=== PATIENT | female | born 1945 | race Caucasian/White ===

== ENCOUNTER 2024-01-20 19:16 | Inpatient (IN) | payer MEDICARE, MEDICAID ==
[~2024-01-20] VITALS: Ht 154.9 cm; Wt 78.5 kg
[~2024-01-20 19:16] MED LIST: ATEN-42 PO; HUM100IN SQ; PRAV40TA58 PO
[2024-01-20 20:00] VITALS: BP 105/54; PULSE 70; RESP 18; TEMP 36.3918; O2SAT 99
[2024-01-20 20:02] VITALS: BP 105/54; PULSE 70; RESP 18; TEMP 36.3624
[2024-01-20] MEDS ORDERED: IPRATROPIUM/ALBUTEROL 0.5-3(2.5)MG/3ML NEB HHN PRN (20:45)
[2024-01-20] MEDS ORDERED: DOCUSATE SODIUM 100MG CAPSULE PO PRN (20:45)
[2024-01-20] MEDS ORDERED: GUAIFENESIN 200MG/10ML SUGAR FREE UDC PO PRN (20:45)
[2024-01-20] MEDS ORDERED: ONDANSETRON HCL 4MG/2ML INJ IV PRN (20:45)
[2024-01-20] MEDS ORDERED: MAGNESIUM/ALUMINUM HYDROXIDE/SIMETHICONE 30ML UDC PO PRN (20:45)
[2024-01-20] MEDS ORDERED: DEXTROSE 50% WATER 50ML SYRINGE IV PRN (20:45)
[2024-01-20] MEDS: SODIUM CHLORIDE 0.9% 1,000 ML IV SCH (21:00)
[2024-01-20] MEDS: BLOOD SUGAR DIAGNOSTIC STRIP TEST SCH (21:39)
[2024-01-20] MEDS: INSULIN LISPRO 100 UNITS/ML SUBCUT SCH (21:40)
[2024-01-20] MEDS: INSULIN GLARGINE 100 UNITS/ML SUBCUT SCH (21:41)
[2024-01-20] MEDS: MEROPENEM 1G/100ML 100 ML IV SCH (23:09)
[2024-01-21 06:29] LABS: CHLORIDE 109 mEq/L (98-107); POTASSIUM 4.6 mEq/L (3.5-5.1); SODIUM 138 mEq/L (136-145)
[2024-01-21 06:32] LABS: CARBON DIOXIDE 24 mEq/L (21-32)
[2024-01-21 06:33] LABS: CALCIUM 8.3 mg/dL (8.7-10.4)
[2024-01-21 06:37] LABS: CREATININE 0.7 mg/dL (0.6-1.0); GLUCOSE 90 mg/dL (70-105)
[2024-01-21 06:38] LABS: UREA NITROGEN BLOOD 13 mg/dL (9-23)
[2024-01-21 06:39] LABS: ALANINE AMINOTRANSFERASE 12 IU/L (10-49); ALBUMIN 2.7 g/dL (3.2-4.8)
[2024-01-21 06:40] LABS: ASPARTATE AMINOTRANSFERASE 30 IU/L (<34); BILIRUBIN TOTAL 0.3 mg/dL (0.1-1.0); PROTEIN TOTAL 5.3 g/dL (6.0-8.3)
[2024-01-21 06:43] LABS: PREALBUMIN < 5.0 mg/dl (10.0-40.0)
[2024-01-21 06:51] LABS: BASOPHILS % 0.1 % (0.0-2.0); EOSINOPHILS % 0.6 % (0.0-5.0); HEMATOCRIT. 38.4 % (36.0-48.0); HEMOGLOBIN. 12.6 g/dL (12.0-16.0); LYMPHOCYTES % 20.8 % (20.0-50.0); MEAN CORPUSCULAR HEMOGLOBIN 32.6 pg (28.0-32.0); MEAN CORPUSCULAR HGB CONC 32.8 g/dL (31.0-37.0); MEAN CORPUSCULAR VOLUME 99.3 fL (81.0-99.0); MEAN PLATELET VOLUME 8.1 fl (7.4-10.4); MONOCYTES % 7.5 % (2.0-8.0); PLATELET 176 x1000/uL (130-400); RED BLOOD CELL COUNT 3.87 mill/uL (4.2-5.4); RED CELL DISTRIBUTION WIDTH 15.6 % (11.6-14.6); WHITE BLOOD COUNT 9.3 x1000/uL (4.5-11.0)
[2024-01-21 08:00] VITALS: BP 139/54; PULSE 78; RESP 18; TEMP 36.50292; O2SAT 99
[2024-01-21] MEDS: ASPIRIN 81MG EC TABLET PO SCH (11:00)
[2024-01-21] MEDS: FAMOTIDINE 20MG/2ML VIAL IV SCH (11:00)
[2024-01-21] MEDS: MAGNESIUM OXIDE 400MG TABLET PO SCH (11:00)
[2024-01-21] MEDS: BISACODYL 10MG SUPP PR NR (13:00)
[2024-01-21] MEDS: POLYETHYLENE GLYCOL 3350 (17GM) 1 DOSE PACK PO SCH (13:00)
[2024-01-21 20:00] VITALS: BP 147/72; PULSE 86; RESP 20; TEMP 36.78072; O2SAT 100
[2024-01-22 06:16] LABS: BASOPHILS % 0.1 % (0.0-2.0); EOSINOPHILS % 0.7 % (0.0-5.0); HEMATOCRIT. 37.1 % (36.0-48.0); HEMOGLOBIN. 12.3 g/dL (12.0-16.0); LYMPHOCYTES % 22.5 % (20.0-50.0); MEAN CORPUSCULAR HEMOGLOBIN 32.6 pg (28.0-32.0); MEAN CORPUSCULAR HGB CONC 33.1 g/dL (31.0-37.0); MEAN CORPUSCULAR VOLUME 98.5 fL (81.0-99.0); MEAN PLATELET VOLUME 7.6 fl (7.4-10.4); MONOCYTES % 7.9 % (2.0-8.0); NEUTROPHILS % 68.8 % (40.0-76.0); PLATELET 193 x1000/uL (130-400); RED BLOOD CELL COUNT 3.77 mill/uL (4.2-5.4); RED CELL DISTRIBUTION WIDTH 16.2 % (11.6-14.6); WHITE BLOOD COUNT 7.5 x1000/uL (4.5-11.0)
[2024-01-22 06:21] LABS: CHLORIDE 107 mEq/L (98-107); POTASSIUM 4.5 mEq/L (3.5-5.1); SODIUM 136 mEq/L (136-145)
[2024-01-22 06:22] LABS: CALCIUM 8.6 mg/dL (8.7-10.4); CARBON DIOXIDE 26 mEq/L (21-32)
[2024-01-22 06:27] LABS: CREATININE 0.8 mg/dL (0.6-1.0); GLUCOSE 142 mg/dL (70-105); IRON 43 ug/dL (50-170); UREA NITROGEN BLOOD 13 mg/dL (9-23)
[2024-01-22 06:28] LABS: AMMONIA < 17 uMol/L (<32)
[2024-01-22 06:30] LABS: TOTAL IRON BINDING CAPACITY 260 ug/dl (250-425)
[2024-01-22 06:31] LABS: THYROID STIMULATING HORMONE 1.99 uIU/mL (0.55-4.78)
[2024-01-22 06:37] LABS: FERRITIN 575 ng/mL (10-291); FOLIC ACID (FOLATE) SERUM 11.06 ng/mL (>5.38)
[2024-01-22 06:38] LABS: VITAMIN B12 SERUM 590 pg/mL (211-911)
[2024-01-22 07:55] VITALS: BP 158/79; PULSE 81; RESP 20; TEMP 36.114; O2SAT 99
[2024-01-22 20:00] VITALS: BP 137/73; PULSE 86; RESP 18; TEMP 36.114; O2SAT 98
[2024-01-22 21:26] LABS: CLARITY URINE TURBID (CLEAR); COLOR URINE YELLOW (YELLOW); GLUCOSE URINE 2+ (NEGATIVE); KETONES URINE NEGATIVE (NEGATIVE); LEUKOCYTE ESTERASE URINE 3+ (NEGATIVE); NITRITE URINE NEGATIVE (NEGATIVE); OCCULT BLOOD URINE 2+ (NEGATIVE); PROTEIN URINE 1+ (NEGATIVE); UROBILINOGEN URINE 0.2 E.U./dL (0.2-1.0)
[2024-01-22 21:52] LABS: BACTERIA URINE 1+; SQUAMOUS EPITHELIAL CELL URINE FEW /lpf (RARE/1+); WBC URINE TNTC /hpf (0-2)
[2024-01-23 08:00] VITALS: BP 150/79; PULSE 85; RESP 20; TEMP 36.50292; O2SAT 99
[2024-01-23] MEDS: ACETAMINOPHEN 325MG TABLET PO PRN (08:56)
[2024-01-23] MEDS: MECLIZINE 25MG TABLET PO SCH (13:21)
[2024-01-23] MEDS: LINAGLIPTIN 5MG TABLET PO SCH (15:40)
[2024-01-23 20:00] VITALS: BP 121/56; PULSE 85; RESP 20; TEMP 36.44736; O2SAT 99
[2024-01-24 08:00] VITALS: BP 114/77; PULSE 95; RESP 19; TEMP 36.83628; O2SAT 98
[2024-01-24 20:00] VITALS: BP 117/64; PULSE 92; RESP 18; TEMP 36.78072; O2SAT 99
[2024-01-25 08:00] VITALS: BP 134/71; PULSE 87; RESP 18; TEMP 36.22512; O2SAT 96
[2024-01-25 20:00] VITALS: BP_SYST 113; BP_SYST 127; BP_DIAS 70; BP_DIAS 77; PULSE 87; PULSE 97; RESP 18; TEMP 36.61404; TEMP 37.39188; O2SAT 96; O2SAT 98
[2024-01-26 07:11] LABS: CARBON DIOXIDE 29 mEq/L (21-32); CHLORIDE 104 mEq/L (98-107); POTASSIUM 4.5 mEq/L (3.5-5.1); SODIUM 137 mEq/L (136-145)
[2024-01-26 07:12] LABS: CALCIUM 9.3 mg/dL (8.7-10.4)
[2024-01-26 07:16] LABS: CREATININE 0.9 mg/dL (0.6-1.0); GLUCOSE 134 mg/dL (70-105)
[2024-01-26 07:17] LABS: UREA NITROGEN BLOOD 19 mg/dL (9-23)
[2024-01-26 08:00] VITALS: BP 159/78; PULSE 78; RESP 18; TEMP 36.114; O2SAT 97
[2024-01-26 08:24] LABS: BASOPHILS % 0.3 % (0.0-2.0); EOSINOPHILS % 0.4 % (0.0-5.0); LYMPHOCYTES % 29.5 % (20.0-50.0); MEAN CORPUSCULAR HEMOGLOBIN 32.9 pg (28.0-32.0); MEAN CORPUSCULAR HGB CONC 33.4 g/dL (31.0-37.0); MEAN CORPUSCULAR VOLUME 98.4 fL (81.0-99.0); MONOCYTES % 7.2 % (2.0-8.0); NEUTROPHILS % 62.6 % (40.0-76.0); PLATELET 255 x1000/uL (130-400); RED BLOOD CELL COUNT 3.66 mill/uL (4.2-5.4); RED CELL DISTRIBUTION WIDTH 15.8 % (11.6-14.6); WHITE BLOOD COUNT 7.8 x1000/uL (4.5-11.0)
[2024-01-26] MEDS ORDERED: MECLIZINE 25MG TABLET PO PRN (15:00)
[2024-01-26 20:00] VITALS: BP 135/88; PULSE 84; RESP 18; TEMP 36.3918; O2SAT 96
[2024-01-27 08:00] VITALS: BP 158/67; PULSE 85; RESP 20; TEMP 36.16956; O2SAT 99
[2024-01-27 20:00] VITALS: BP 99/56; PULSE 90; RESP 17; TEMP 36.50292; O2SAT 100
[2024-01-28 08:00] VITALS: BP 135/72; PULSE 80; RESP 18; TEMP 36.114; O2SAT 99
[2024-01-28 20:00] VITALS: BP 115/55; PULSE 83; RESP 17; TEMP 36.3918; O2SAT 98
[2024-01-28] MEDS: MEROPENEM 1G/100ML 100 ML IV SCH (21:05)
[2024-01-29 08:00] VITALS: BP 134/60; PULSE 78; RESP 18; TEMP 36.28068; O2SAT 97
[2024-01-29 20:00] VITALS: BP 130/66; PULSE 79; RESP 18; TEMP 36.61404; O2SAT 96
[2024-01-29] MEDS: INSULIN GLARGINE 100 UNITS/ML SUBCUT SCH (21:37)
[2024-01-30 06:13] LABS: CALCIUM 9.2 mg/dL (8.7-10.4); CHLORIDE 104 mEq/L (98-107); POTASSIUM 4.4 mEq/L (3.5-5.1); SODIUM 137 mEq/L (136-145)
[2024-01-30 06:14] LABS: CARBON DIOXIDE 30 mEq/L (21-32)
[2024-01-30 06:18] LABS: BASOPHILS % 0.5 % (0.0-2.0); EOSINOPHILS % 0.3 % (0.0-5.0); HEMATOCRIT. 34.9 % (36.0-48.0); HEMOGLOBIN. 11.5 g/dL (12.0-16.0); LYMPHOCYTES % 26.5 % (20.0-50.0); MEAN CORPUSCULAR HEMOGLOBIN 32.5 pg (28.0-32.0); MEAN CORPUSCULAR HGB CONC 32.9 g/dL (31.0-37.0); MEAN CORPUSCULAR VOLUME 98.8 fL (81.0-99.0); MEAN PLATELET VOLUME 7.9 fl (7.4-10.4); MONOCYTES % 8.4 % (2.0-8.0); NEUTROPHILS % 64.3 % (40.0-76.0); PLATELET 261 x1000/uL (130-400); RED BLOOD CELL COUNT 3.54 mill/uL (4.2-5.4); RED CELL DISTRIBUTION WIDTH 16.1 % (11.6-14.6); WHITE BLOOD COUNT 7.3 x1000/uL (4.5-11.0)
[2024-01-30 06:19] LABS: CREATININE 0.9 mg/dL (0.6-1.0); GLUCOSE 119 mg/dL (70-105); UREA NITROGEN BLOOD 23 mg/dL (9-23)
[2024-01-30 08:00] VITALS: BP 126/69; PULSE 74; RESP 19; TEMP 36.44736; O2SAT 97
[2024-01-30 20:00] VITALS: BP 119/65; PULSE 51; RESP 17; TEMP 36.33624; O2SAT 98
[2024-01-30] MEDS: MECLIZINE 25MG TABLET PO SCH (20:14)
[2024-01-31 08:00] VITALS: BP 155/74; PULSE 76; RESP 18; TEMP 36.114; O2SAT 95
[2024-01-31 20:00] VITALS: BP 132/65; PULSE 86; RESP 18; TEMP 37.05852; O2SAT 98
[2024-02-01 08:00] VITALS: RESP 18; TEMP 36.3918; O2SAT 98
[2024-02-01 20:00] VITALS: BP 130/69; PULSE 87; RESP 20; TEMP 36.61404; O2SAT 94
[2024-02-02 08:00] VITALS: BP 112/75; PULSE 86; RESP 19; TEMP 36.114; O2SAT 97
[2024-02-02 20:00] VITALS: BP 120/67; PULSE 97; RESP 18; TEMP 36.50292; O2SAT 97
[2024-02-03 08:00] VITALS: BP 144/68; PULSE 79; RESP 20; TEMP 36.33624; O2SAT 100
[2024-02-03] MEDS: FAMOTIDINE 20MG TABLET PO SCH (09:40)
[2024-02-03 20:00] VITALS: BP 134/71; PULSE 90; RESP 19; TEMP 36.50292; O2SAT 98
[2024-02-04 07:22] LABS: BASOPHILS % 0.3 % (0.0-2.0); DIFFERENTIAL COMMENT 0; EOSINOPHILS % 0.7 % (0.0-5.0); HEMATOCRIT. 35.5 % (36.0-48.0); HEMOGLOBIN. 11.7 g/dL (12.0-16.0); LYMPHOCYTES % 31.1 % (20.0-50.0); MEAN CORPUSCULAR HEMOGLOBIN 33.2 pg (28.0-32.0); MEAN CORPUSCULAR VOLUME 100.6 fL (81.0-99.0); MEAN PLATELET VOLUME 8.3 fl (7.4-10.4); MONOCYTES % 6.8 % (2.0-8.0); NEUTROPHILS % 61.1 % (40.0-76.0); PLATELET 286 x1000/uL (130-400); RED BLOOD CELL COUNT 3.53 mill/uL (4.2-5.4); RED CELL DISTRIBUTION WIDTH 16.7 % (11.6-14.6); WHITE BLOOD COUNT 7.4 x1000/uL (4.5-11.0)
[2024-02-04 07:24] LABS: CALCIUM 9.5 mg/dL (8.7-10.4); CARBON DIOXIDE 28 mEq/L (21-32); CHLORIDE 106 mEq/L (98-107); POTASSIUM 4.2 mEq/L (3.5-5.1); SODIUM 139 mEq/L (136-145)
[2024-02-04 07:30] LABS: CREATININE 0.9 mg/dL (0.6-1.0); GLUCOSE 67 mg/dL (70-105)
[2024-02-04 07:31] LABS: UREA NITROGEN BLOOD 20 mg/dL (9-23)
[2024-02-04 08:00] VITALS: BP 161/63; PULSE 80; RESP 18; TEMP 36.55848; O2SAT 99
[2024-02-04 15:08] VITALS: BP 148/63; PULSE 80; TEMP 97.8; O2SAT 98
[2024-02-04 20:00] VITALS: BP 130/63; PULSE 82; RESP 19; TEMP 36.50292; O2SAT 95
[2024-02-04] MEDS: CLONIDINE 0.1MG TABLET PO PRN (21:26)
== END 2024-02-04 21:45 | DRG 70 ==
PROVIDERS: ADMIT Physical Medicine & Rehabilitation Spinal Cord Injury Medicine; ATTEND Internal Medicine
PROC: GZ51ZZZ Individual Psychotherapy, Behavioral (ICD-10-PCS; principal; 2024-01-21)
DX: G93.41 Metabolic encephalopathy (principal); A41.9 Sepsis, unspecified organism; I21.4 Non-ST elevation (NSTEMI) myocardial infarction; E87.20 Acidosis, unspecified; N17.9 Acute kidney failure, unspecified; K56.7 Ileus, unspecified; K35.80 Unspecified acute appendicitis; N39.0 Urinary tract infection, site not specified; F03.90 Unspecified dementia, unspecified severity, without behavioral disturbance, psychotic disturbance, mood disturbance, and anxiety; E11.65 Type 2 diabetes mellitus with hyperglycemia; E83.42 Hypomagnesemia; E86.0 Dehydration; R45.87 Impulsiveness; E87.6 Hypokalemia; R26.9 Unspecified abnormalities of gait and mobility; E11.42 Type 2 diabetes mellitus with diabetic polyneuropathy; E27.9 Disorder of adrenal gland, unspecified; I10 Essential (primary) hypertension; R13.10 Dysphagia, unspecified; Z79.899 Other long term (current) drug therapy; Z90.12 Acquired absence of left breast and nipple; Z85.3 Personal history of malignant neoplasm of breast; Z91.81 History of falling; Z79.4 Long term (current) use of insulin; Z90.11 Acquired absence of right breast and nipple
CPT/HCPCS: 36415; 80048; 80053; 81003; 82140; 82306; 82607; 82728; 82746; 82962; 83036; 83540; 83550; 84134; 84443; 85025; 92523; 92610; 97110; 97112; 97116; 97162; 97166; 97530; 97535; 97542; A6261; J1815; J2185; J3490; J7030; J8597